=== PATIENT | female | born 1970 | race Caucasian/White ===

== ENCOUNTER 2018-04-30 11:30 | Outpatient (CLI) | payer BC, SELFPAY ==
[2018-04-30 12:24] LABS: Hemoglobin A1C 5.5 % (4.5-6.2)
[2018-04-30 13:30] LABS: ALT 24 U/L (12-78); AST 13 U/L (15-37); Albumin 4.2 g/dL (3.4-5.0); Alkaline Phosphatase 52 U/L (46-116); Anion Gap 9.6 mmol/L (3-11); BUN 13 mg/dL (7-18); Bilirubin, Total 0.4 mg/dL (0.2-1.0); CO2 26.4 mmol/L (21.0-32.0); CREATININE 0.79 mg/dL (0.55-1.02); Calcium 9.8 mg/dL (8.5-10.1); Chloride 102 mmol/L (98-107); Cholesterol 266 mg/dL (50-200); Glucose 92 mg/dL (70-100); HDL Cholesterol 73 mg/dL (40-60); LDL CHOLESTEROL 169 mg/dL (<100); Potassium 4.1 mmol/L (3.5-5.1); Sodium 138 mmol/L (136-145); Total Protein 7.7 g/dL (6.4-8.2); Triglyceride 162 mg/dL (30-150)
== END 2018-04-30 11:50 ==
PROVIDERS: PCP Nurse Practitioner Gerontology; Visit Provider Obstetrics & Gynecology Gynecology
DX: Z00.00 Encounter for general adult medical examination without abnormal findings (principal); Z13.220 Encounter for screening for lipoid disorders; Z13.1 Encounter for screening for diabetes mellitus; Z13.228 Encounter for screening for other metabolic disorders
CPT/HCPCS: 36415; 80053; 80061; 83721; 83036

== ENCOUNTER 2018-05-04 00:15 | Outpatient (CLI) | payer BC, SELFPAY ==
--- NOTE | 2018-05-04 10:03 | DI.MAMMO_ITS ---
SYMPTOM/DIAGNOSIS: SCREENING, Z12.31 MAMMOGRAMS: Mammograms were interpreted according to the usual protocol including computer analysis with CAD system, tomosynthesis and C view imaging. Comparison is made with exams from [id number]. The breasts are composed of heterogeneously dense fibroglandular tissue, breast density, Category C. No suspicious masses or suspicious microcalcifications are seen. There has been no significant change. IMPRESSION: Category 1C, negative mammogram. Yearly screening mammography is recommended. [facility] ASSESSMENT OF FINDINGS: Negative. Category 1. Patient will receive a letter notifying them of these results. Bi-RADS category C. The breasts are heterogeneously dense, which may obscure small masses.
== END 2018-05-04 00:35 ==
PROVIDERS: PCP Nurse Practitioner Gerontology; Visit Provider Obstetrics & Gynecology Gynecology
DX: Z12.31 Encounter for screening mammogram for malignant neoplasm of breast (principal)
CPT/HCPCS: 77063; 77067

== ENCOUNTER 2018-05-06 05:27 | Outpatient (CLI) | payer BC, SELFPAY ==
--- NOTE | 2018-05-06 08:07 | DI.US_ITS ---
SYMPTOMS/DIAGNOSIS: ENLARGED UTERUS, DYSMENORRHEA PELVIC ULTRASOUND: Transabdominal and transvaginal examinations were performed. The uterus is enlarged with multiple fibroids, measuring 11.9 x 7.7 x 9.1 cm. The largest fibroid is seen anteriorly measuring 6.7 cm in greatest dimension. The ovaries were difficult to visualize due to the presence of the fibroids. They are only seen transabdominally and appear normal in size. The kidneys are unremarkable. The endometrial stripe was not well seen due to fibroids but measures 11 mm where visualized. IMPRESSION: Enlarged uterus with multiple fibroids.
== END 2018-05-06 05:47 ==
PROVIDERS: PCP Nurse Practitioner Gerontology; Visit Provider Obstetrics & Gynecology Gynecology
DX: N94.6 Dysmenorrhea, unspecified (principal); N85.2 Hypertrophy of uterus; D25.9 Leiomyoma of uterus, unspecified
CPT/HCPCS: 76830; 76856

== ENCOUNTER 2019-05-11 01:18 | Outpatient (CLI) | payer BC, SELFPAY ==
--- NOTE | 2019-05-11 08:11 | DI.US_ITS ---
EXAM: US PELVIS TRANSVAGINAL CLINICAL HISTORY: enlarged uterus, N85.2 TECHNIQUE: Ultrasound performed using standard protocol. Transabdominal and transvaginal exams wer e performed. COMPARISON: US PELVIS TRANSVAGINAL from 05/06/2018 FINDINGS: The uterus is enlarged with multiple fibroids. The uterus measures 11.5 x 8.3 x 8.6 cm. A fibroid jolene suring 6.7 cm is again noted near the fundus. Smaller exophytic fibroid is seen at the fundus. Endome trial stripe is difficult to visualize due to deformity and shadowing by the fibroid. Ovaries were no t able to be visualized. The kidneys are unremarkable. No free fluid is seen. IMPRESSION: Enlarged uterus with fibroids, not significantly changed. The ovaries were unable to be identified.
== END 2019-05-11 01:38 ==
PROVIDERS: PCP Family Medicine; Visit Provider Obstetrics & Gynecology Gynecology
DX: N85.2 Hypertrophy of uterus (principal); D25.9 Leiomyoma of uterus, unspecified
CPT/HCPCS: 76830; 76856

== ENCOUNTER 2020-05-25 09:52 | Outpatient (REF) | payer BC, SELFPAY ==
--- NOTE | 2020-05-25 09:15 | PAPFT_PTH ---
PATIENT: Bhumika Tadeo LOC: [facility] U#:[id number] AGE/SX: 49/F ROOM: RE05/25/[address]: Gladis Rasmussen : 1970 BED: DIS: 05/25/2020 SPEC #: [id number] RECD: 05/25/20 13:09 STATUS: SOCO REShawn #: [id number] MARIANNA: 05/25/20 09:[address]: Gladis Rasmussen DEPT: [facility] Cytology RECD BY: Eva Crane ENTERED: 05/25/20 13:10 SP TYPE: PAPFT OTHR DR: Pako Dumont MD Tissues: 1 - CX/ENDOCX FOR PAP SMEARS Procedures: PAP THIN PREP/UVM Screening HPV DNA PROBE Comments: [id number]
--- NOTE | 2020-05-25 09:15 | ENDOMET_PTH ---
PATIENT: Bhumika Tadeo LOC: [facility] U#:[id number] AGE/SX: 49/F ROOM: RE05/25/[address]: Gladis Rasmussen : 1970 BED: DIS: 05/25/2020 SPEC #: [id number] RECD: 05/25/20 12:54 STATUS: SOCO REQ #: [id number] MARIANNA: 05/25/20 09:[address]: Gladis Rasmussen DEPT: Surgical Specimen RECD BY: Eva Crane ENTERED: 05/25/20 12:54 SP TYPE: Endomet OTHR DR: Pako Dumont MD Tissues: 1 - ENDOMETRIUM BX/CURRETTE Procedures: GROSS AND MICRO LEVEL 4 Comments: [id number]
== END 2020-05-25 10:12 ==
LOC: LBN 09:52
PROVIDERS: PCP Family Medicine; Visit Provider Obstetrics & Gynecology Gynecology
DX: N85.01 Benign endometrial hyperplasia (principal); N92.0 Excessive and frequent menstruation with regular cycle; Z12.4 Encounter for screening for malignant neoplasm of cervix; Z11.51 Encounter for screening for human papillomavirus (HPV)
CPT/HCPCS: 88142; 88305; 87624

== ENCOUNTER 2020-06-16 01:29 | Outpatient (CLI) | payer BC, SELFPAY ==
[2020-06-17 17:07] LABS: COVID-19 RT-PCR UVMMC Result Negative (Negative)
== END 2020-06-16 01:30 | disposition home or self-care (01) ==
LOC: LBO 01:29
PROVIDERS: PCP Family Medicine; Visit Provider Obstetrics & Gynecology Gynecology
DX: Z20.822 Contact with and (suspected) exposure to COVID-19 (principal); Z01.818 Encounter for other preprocedural examination
CPT/HCPCS: U0003

== ENCOUNTER 2020-06-16 01:30 | Outpatient (CLI) | payer BC, SELFPAY ==
[2020-06-16 09:34] LABS: HCT 39.4 % (36.0-46.0); HGB 13.5 g/dL (11.2-15.7); MCH 32.5 pg (27.0-33.0); MCHC 34.3 % (32.0-36.0); MCV 94.9 fL (80-95); MPV 9.6 fL (8.0-11.0); Platelet Count 298 10^3/uL (130-400); RBC 4.15 10^6/uL (3.93-5.22); RDW 11.5 % (11.7-14.6); RDW-SD 39.7 fL; WBC 6.41 10^3/uL (4.4-10.8)
[2020-06-16 10:22] LABS: Anion Gap 8.3 mmol/L (3-11); CO2 26.7 mmol/L (21.0-32.0); Chloride 102 mmol/L (98-107); Potassium 4.1 mmol/L (3.5-5.1); Sodium 137 mmol/L (136-145)
[2020-06-16 10:27] LABS: HCG Qual (Serum) Negative
== END 2020-06-16 01:31 | disposition home or self-care (01) ==
LOC: LBO 01:30
PROVIDERS: PCP Family Medicine; Visit Provider Obstetrics & Gynecology Gynecology
DX: N92.0 Excessive and frequent menstruation with regular cycle (principal); N85.2 Hypertrophy of uterus; Z01.818 Encounter for other preprocedural examination; Z01.812 Encounter for preprocedural laboratory examination
CPT/HCPCS: 36415; 80051; 85027; 86850; 86900; 86901; 84703

== ENCOUNTER 2020-06-21 14:58 | Observation (INO) | payer BC, SELFPAY ==
[2020-06-21] VITALS (17 sets, daily range): BP systolic 85–110; BP diastolic 54–72; PULSE 66–85; RESP 10–20; TEMP 36.2–36.6; O2SAT 94–100
[2020-06-21] MEDS: Lactated Ringers 1,000 ML 125 ML IV ×2 (09:05→14:38)
[2020-06-21] MEDS: fentaNYL 100 MCG/2 ML VIAL IT (12:12)
[2020-06-21] MEDS: ceFAZolin 2 GM/50 ML BAG IVPB (12:16)
[2020-06-21] MEDS: Bupivacaine 0.25% Pres-Free 30 ML VIAL (12:57)
--- NOTE | 2020-06-21 13:05 | UTER_PTH ---
PATIENT: Bhumika Tadeo LOC: [facility] U#:[id number] AGE/SX: 49/F ROOM: OBS.306 RE06/21/[address]: Gladis Rasmussen : 1970 BED: A DIS: 06/22/2020 SPEC #: [id number] RECD: 06/21/20 16:38 STATUS: SOUTino REQ #: [id number] MARIANNA: 06/21/20 13:[address]: Gladis Rasmussen DEPT: Surgical Specimen RECD BY: Eva Crane ENTERED: 06/21/20 16:44 SP TYPE: UTER OTHR DR: Pako Dumont MD Tissues: 1 - UTERUS W OR W/O OVARIES(NOT TUMOR/PROLAPSE) Procedures: GROSS AND MICRO LEVEL 5 Comments: [id number]
[2020-06-21] MEDS: Ketorolac 30 MG/ML VIAL IVP ×2 (15:56→21:51)
--- NOTE | 2020-06-21 16:23 | W.PM.OP ---
Date of service: 06/21/20 Time of Service: 16:30 Operative Note Operative Note DATE OF PROCEDURE: 06/21/20 PRE-OP DIAGNOSIS: Enlarged uterus, abnormal uterine bleeding POST-OP DIAGNOSIS: same PROCEDURE: Attempted laparoscopic assisted vaginal hysterectomy that was converted to a total abdominal hysterectomy with bilateral salpingectomy and ovarian conservation SURGEON: Gladis Rasmussen SETTLEMENT PROCESSOR: Rosa Velazquez ANESTHESIA TYPE: General LMA/ETT and Spinal Refer to Anesthesia Record ESTIMATED BLOOD LOSS: 500 PATHOLOGY: other (Both fallopian tubes uterus and cervix to pathology) COMPLICATIONS: None Patient was transported to: PACU Patient's condition: stable Indications: 49-year old female with heavy regular menses and enlarged uterus secondary to multiple fibroids who was not a good candidate for medical intervention. Findings: Bulky uterus with the lower uterine segment distorted by an intramural fibroid. The distal right broad ligament was millimeters away from the internal iliac artery and I was unable to visualized the right ureter.it was at this point in the surgery that decision was made to proceed with a abdominal hysterectomy. Left ovary had a simple appearing functional cyst, both fallopian tubes were normal in appearance as was the appendix and the upper abdomen. Procedure Description: Patient was taken to the operating room where she was placed in the sitting position and spinal anesthesia was administered without difficulty. She was then placed in the dorsal supine position and general endotracheal anesthesia was administered. She received preoperative antibiotics as prescribed. She was then placed in the dorsal lithotomy position in yellowfin stirrups with SCDs in place. After being prepped and draped in the usual sterile fashion a surgical timeout was performed. Lopes catheter was placed to gravity drainage. A bivalve speculum was placed in the vagina and the anterior lip of the cervix was grasped with a single-tooth tenaculum. A uterine manipulator was placed into the uterine cavity and the distal bulb inflated with 5 cc of water and remained in place for the during the operative portion of the case. Attention was then turned to the patient's abdomen. The umbilical fold was infiltrated with quarter percent Marcaine without epinephrine. A scalpel was then used to make a 12mm skin incision in the vertical fold. Two penetrating towel clips were used to tent up the skin and through the periumbilical incision and a Veres needle was introduced into the abdomen and intra-abdominal placement confirmed by a drop in the intra-abdominal pressure. Once a pneumoperitoneum was established a 12 mm Visiport was placed under direct visualization and intra-abdominal placement confirmed by use of the laparoscope. Patient was then placed in Trendelenburg position. At two sites approximately 6 cm diagonally from the umbilical incision the skin was infiltrated with quarter percent Marcaine without epinephrine, incised with a scalpel and two 5 mm lower ports were placed under direct visualization. A LigaSure electrocautery device was used to clamp cauterize and transect the distal mesosalpinx in a contiguous fashion to the level of the left uterine cornua. The left fallopian tube was clamped cauterized and transected at its proximal relation to the left uterine cornua. The left lobe tube was then passed through the helical trocar and passed off of the operative field. Left ovarian ligament was then sequentially clamped cauterized and transected to the level of the left round ligament were in a similar fashion fashion the left round ligament was clamped cauterized and transected. The left broad ligament was sequentially clamped cauterized and transected allowing mobilization of the vesicouterine peritoneum off of the lower uterine segment. Viewing the cervix was virtually impossible secondary to distortion from the lower uterine segment fibroid. Attention was turned to the right fallopian tube which was sequentially clamped cauterized and transected in a similar fashion as the left side and entire right fallopian tube passed through the umbilical trocar passed off the operative field. We are unable to visualize the right round ligament secondary to to the distortion from the uterine fibroids. Because of the close proximity of the lower uterine segment to the right pelvic sidewall and vascular structures the decision was made to proceed with a abdominal hysterectomy for the remainder of the case. The uterine manipulator was removed from the uterus. The patient did not require repositioning or redraping. A Pfannenstiel skin incision was made with a scalpel after dermal area had been infiltrated with quarter percent Marcaine without epinephrine. The underlying subcutaneous tissue was dissected using Bovie electrocautery to the level of the rectus fascia. The rectus fascia was nicked in the midline and the fascial incision extended laterally using Bovie electrocautery. 2 Harsh clamps were applied to the superior aspect of the rectus fascia which was dissected off of the underlying rectus muscles using combination of blunt technique and Bovie electrocautery. A similar technique was carried out on the rectus fascia of the inferior aspect of the incision. The rectus muscles were then in the midline and the peritoneum was bluntly stretched. A Shashi self-retaining retractor was placed into the abdominal incision and bowel was packed away with moist laparotomy sponges. A suture of 0 Vicryl was placed at the cornual regions bilaterally and held long for traction. The remaining left broad ligament was sequentially clamped transected and suture ligated with 0 Vicryl to the level of the uterine vessels. Similar technique was carried out on the contralateral side. Once the right and left uterine vessels had been clamped transected and suture-ligated the uterus was amputated from the body of the cervix with the Bovie electrocautery. Uterus was then passed off of the operative field. The remaining remnants of broad ligament were sequentially clamped cut and suture-ligated bilaterally to the level of the bulbous portio of the cervix. A curved Zeppelin clamp was placed across the right and left vaginal epithelium and curved scissors were used to amputate the cervix from the vagina. The body of the cervix was passed off of the operative field. The vaginal cuff was then reapproximated with interrupted sutures of 0 Vicryl with excellent hemostasis noted. The pelvis was irrigated with normal saline and hemostasis observed. The abdominal packing was removed as was the self-retaining retractor. The periumbilical fascia was reapproximated with interrupted suture of 0 Vicryl. The rectus fascia was then reapproximated with a running suture of 0 Vicryl. Subcutaneous tissue was then reapproximated with 2-0 Vicryl in an interrupted fashion and the skin reapproximated with subcuticular closure of 4-0 Monocryl. The skin of all the trocar incisions was then reapproximated with 4-0 Monocryl in subcuticular fashion and all the incisions were sealed with skin glue. A bladder cystoscopy was performed with vigorous eflux of urine noted from the right and left ureteral orifices. Lopes cath was reinserted to gravity drainage. The patient was placed in the dorsal supine position, awakened extubated and transported to recovery area in stable condition. All sponge lap and needle counts are correct x2
[2020-06-21] MEDS: Lactated Ringers 1,000 ML 150 ML IV (16:38)
[2020-06-21] MEDS: Docusate Sodium 100 MG CAP PO (21:51)
[2020-06-21] MEDS: Normal Saline Flush 10 ML SYR IV (21:51)
[2020-06-22] VITALS (7 sets, daily range): BP systolic 82–111; BP diastolic 40–65; PULSE 58–61; RESP 16–18; TEMP 36.8; O2SAT 97–100
[2020-06-22] MEDS: diphenhydrAMINE 25 MG CAP PO (03:58)
[2020-06-22] MEDS: Ketorolac 30 MG/ML VIAL IVP (03:58)
[2020-06-22] MEDS: Normal Saline Flush 10 ML SYR IV (03:58)
[2020-06-22 06:58] LABS: HCT 37.1 % (36.0-46.0); HGB 12.4 g/dL (11.2-15.7); MCH 32.2 pg (27.0-33.0); MCHC 33.4 % (32.0-36.0); MCV 96.4 fL (80-95); MPV 9.8 fL (8.0-11.0); Platelet Count 284 10^3/uL (130-400); RBC 3.85 10^6/uL (3.93-5.22); RDW 11.6 % (11.7-14.6); WBC 14.88 10^3/uL (4.4-10.8)
--- NOTE | 2020-06-22 07:42 | W.PM.DS.N ---
Date of service: 06/22/20 Time of Service: 07:42 DS: Diagnosis Discharge Diagnosis (1) History of total abdominal hysterectomy: Status: Acute (2) H/O bilateral salpingectomy: Status: Acute (3) Enlarged uterus: Status: Acute (4) Menorrhagia: Status: Acute Discharge Plan Disposition Patient Disposition: HOME Condition: Good Discharge Details Reason For Visit: UTERINE FIBROID, ABNORMAL UTERINE BLEEDING Admit Date/Time: 06/21/20 14:58 Admit Provider: Gladis Rasmussen Attending Provider: Gladis Rasmussen [facility] Course: Pt has a hx of dysmenorrhea and abnormal uterine bleeding was admitted to [facility] and underwent a CRYSTAL and bilateral salpingectomy. The surgery was started as a laparoscopic procedure but due to the distortion of the anatomy from the lower uterine segment we were unable to continue safely with the laparoscopic portion of the case. The uterus and cervix were removed abdominally without complication. A bladder cystoscopy performed at the completion of the procedure show bilateral efflux from the urethral orifices. Postop course was uncomplicated. She was discharged to home on POD 1 tolerating a regular diet and voiding spontaneously. Post operative pain was well controlled with Percocet and NSAIDS. She has a follow up appointment with Dr. Rasmussen 07/05/20. Discharge meds: Percocet 5/325mg one tablet every 6hrs as needed. Ibuprofen 600mg every 6 hours as needed. Acetaminophen 325mg every 6 hrs as needed. Home Meds and New Rx's Prescriptions: No Action cholecalciferol (vitamin D3) 125 mcg/0.5 mL (5K unit/0.5mL) drops 12.5 mcg PO DAILY RF: 0 citalopram 40 mg tablet 40 mg PO DAILY Qty: 90 RF: 4 Discharge Instructions Additional Instructions: You may shower any time. The skin glue will keep your incisions dry. You remove the bandaids when you wish. I have called a prescription for Percocet into your pharmacy. Stand Alone Forms: [facility] Post Gynecology Surgery Activity:: Activity as Tolerated Equipment/Supplies:: No Equipment Needed Diet:: As Tolerated Discharge Orders Discharge Orders: Discharge Order (Routine); Ordered 06/22/20 Ordered By: Gladis Rasmussen Discharge Data Discharge Date/Time-TO BE ENTERED AT DEPARTURE: 06/22/20 09:40 DS: Summary Time Spent with Patient providing and/or coordinating discharge services: Less than 30 minutes Status at Discharge Functional status at discharge: independent ambulation Overall status at discharge: patient is progressing back to baseline Mental Status: mental status grossly normal Speech and Movement: speech and movement normal Mood: congruent mood Affect: normal affect Exam Const General: no acute distress Nutritional Appearance: average body habitus Orientation: alert, awake and oriented x3 Resp Effort & Inspection: normal respiratory effort Auscultation: clear to auscultation bilaterally Cardio Rate: regular rate Rhythm: regular rhythm GI Inspection: normal to inspection and scar (Pfannenstiel skin incision and port sites intact skin glue in place) Palpation: soft, no hepatosplenomegaly, no guarding, no masses and tender General: deferred Skin General skin exam: no rashes or lesions noted Extrem General: normal to inspection, full ROM and capillary refill normal Psych Mental Status: mental status grossly normal Speech and Movement: speech and movement normal Mood: congruent mood Affect: normal affect DS: Data Vitals/I&O Vitals and I&O: Vital Signs Temperature 98.2 F 06/22/20 07:26 Temperature Source Oral 06/22/20 07:26 Pulse 61 06/22/20 07:26 Pulse Rhythm Regular 06/22/20 07:29 Respiratory Rate 16 06/22/20 07:26 Respiratory Effort Non-Labored 06/22/20 07:29 Respiratory Depth Normal 06/22/20 07:29 Respiratory Pattern Normal 06/22/20 07:29 Blood Pressure 111/65 06/22/20 07:26 Pulse Oximetry 100 06/22/20 07:26 Respiratory End-tidal CO2 46 06/21/20 15:43 Oxygen Delivery Method Room Air 06/22/20 07:26 Oxygen Flow Rate 0 06/22/20 07:26 Pain Level 0 06/22/20 07:26 Intake & Output 06/21/20 06/21/20 06/22/20 11:59 23:59 11:59 Intake Total 2870.083 / 2870.083 2700 / 2700 Output Total 750 / 750 1800 / 1800 Balance 2120.083 / 2120.083 900 / 900 Weight 174 lb 6.17 oz Intake: IV 2470.083 / 2470.083 1600 / 1600 Oral 400 / 400 1100 / 1100 Output: Urine 750 / 750 1800 / 1800 Other: Urine Color Green Pale Urine Appearance Clear Clear Comment russell discontinued Emesis Description None Voiding Methods Toilet Data Completed and Pending Labs on day of discharge: Labs from last 24 hours 06/22/20 06:41 WBC 14.88 H RBC 3.85 L Hgb 12.4 Hct 37.1 MCV 96.4 H MCH 32.2 MCHC 33.4 RDW 11.6 L Plt Count 284 MPV 9.8 PFSH Medical History Depression Symptoms stable with citalopram 40 mg daily. Rx from [facility]. Enlarged uterus 05/06/2018 uterus: 119X 77x 91 mm. Multiple fibroids. Largest fibroid fundal 67 x 63 x 58 mm Hx of abnormal cervical Pap smear CIN2. Nl since. Menorrhagia 05/2020. Pt declines LARC. EMBx results Surgical History (Updated 06/22/20 @ 08:07 by Gladis Rasmussen MD) Diagnostic Laproscopy (~1999) Dilation and curettage 1998;1999 H/O bilateral salpingectomy History of total abdominal hysterectomy 06/21/20. Tooth extraction WISDOM TEETH EXTRACTION Family History Mother Breast cancer Social History Smoking/Tobacco Use Status: Former Tobacco Use Quit Date: 05/05/90 Smoking risk assessment performed?: Yes Alcohol Intake: current Alcohol Intake frequency: 0-2 drinks per day Alcohol type: wine Counseling given: Yes (Recommend no more than 1 alcoholic beverage per day) Substance use type: does not use Details: alcohol: t-1, three glasses of wine Adopted: No Caregiver/Support person: No Foster care: No Household members: significant other, children and other Details: Isacc Rowe ([facility] [employer] [facility]),Regina Elizondo. 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
--- NOTE | 2020-06-22 08:00 | W.PM.PROGNOT ---
Date of Service Date of service: 06/22/20 Time of Service: 08:00 Assessment and Plan Assessment and plan (1) H/O bilateral salpingectomy: Status: Acute (2) History of total abdominal hysterectomy: Status: Acute Assessment and plan: Patient be discharged home today. She was given discharge instructions regarding activity level, pain medication and plan for return visit. Final pathology currently pending. Subjective Subjective Patient reports: feels better, still having pain, tolerating a regular diet, voiding w/o difficulty and no bowel movement Interval history since last seen: Reports pain well controlled with Percocet and ibuprofen during the night. Exam Narrative Exam Narrative: Postop day 1 after a total abdominal hysterectomy bilateral salpingectomy. The procedure began as a laparoscopic assisted vaginal hysterectomy but was converted to a total abdominal hysterectomy secondary to distortion of the pelvic anatomy from the patient's uterine fibroids. Postop course has been uncomplicated and she is ready for discharge today. Const General: no acute distress Nutritional Appearance: average body habitus Orientation: alert, awake and oriented x3 Neck Neck: normal visual inspection Resp Effort & Inspection: normal respiratory effort Auscultation: clear to auscultation bilaterally Cardio Rate: regular rate Rhythm: regular rhythm GI Inspection: abdominal wall ecchymosis (Right lower quadrant and mons pubis), edema (Inferior and superior to the Pfannenstiel skin incision) and incision (Clean dry and intact) Palpation: soft and no hepatosplenomegaly General: deferred Skin General skin exam: ecchymosis and no erythema Extrem General: normal to inspection, full ROM and capillary refill normal Psych Appearance: grossly normal Mental Status: mental status grossly normal Speech and Movement: speech and movement normal Mood: congruent mood Affect: normal affect Objective Last Vital Signs Temp 98.2 F 06/22/20 07:26 Pulse 61 06/22/20 07:26 Resp 16 06/22/20 07:26 BP 111/65 06/22/20 07:26 Pulse Ox 100 06/22/20 07:26 Laboratory Results - last 24 hr 06/22/20 06:41 WBC 14.88 H RBC 3.85 L Hgb 12.4 Hct 37.1 MCV 96.4 H MCH 32.2 MCHC 33.4 RDW 11.6 L Plt Count 284 MPV 9.8
[2020-06-22] MEDS: oxyCODONE 5 mg/Acetaminophen 325 mg TAB PO (08:16)
[2020-06-22] MEDS: Docusate Sodium 100 MG CAP PO (08:16)
== END 2020-06-22 09:40 | disposition home or self-care (01) ==
LOC: OBS 16:23
PROVIDERS: Admitting Provider Obstetrics & Gynecology Gynecology; PCP Family Medicine; Visit Provider Obstetrics & Gynecology Gynecology
PROC: 0UT9FZZ Resection of Uterus, Via Natural or Artificial Opening With Percutaneous Endoscopic Assistance (ICD-10-PCS; CPT 49320; principal; 2020-06-21 10:00)
PROC: 0UT90ZZ Resection of Uterus, Open Approach (ICD-10-PCS; CPT 49320; 2020-06-21 10:00)
DX: D25.1 Intramural leiomyoma of uterus (principal); D25.2 Subserosal leiomyoma of uterus; Z53.31 Laparoscopic surgical procedure converted to open procedure; N85.2 Hypertrophy of uterus; N92.0 Excessive and frequent menstruation with regular cycle
CPT/HCPCS: 49320; 58150; 52000; 36415; 81025; 85027; 96360; 96361; NC; 88307; G0378; J0690; J1100; J1885; J2250; J2405; J2704; J3010

== ENCOUNTER 2020-07-21 10:54 | Outpatient (CLI) | payer BC, SELFPAY ==
[2020-07-22 14:20] LABS: COVID-19 RT-PCR UVMMC Result Positive (Negative)
== END 2020-07-21 10:55 | disposition home or self-care (01) ==
PROVIDERS: PCP Family Medicine; Visit Provider Family Medicine
DX: Z20.822 Contact with and (suspected) exposure to COVID-19 (principal)
CPT/HCPCS: U0003

== ENCOUNTER 2020-09-13 03:08 | Outpatient (CLI) | payer BC, SELFPAY ==
[2020-09-13 08:40] LABS: Hemoglobin A1C 5.6 % (<5.7)
[2020-09-13 09:09] LABS: ALT 33 U/L (14-59); AST 16 U/L (15-37); Albumin 4.1 g/dL (3.4-5.0); Alkaline Phosphatase 59 U/L (46-116); Anion Gap 9.7 mmol/L (3-11); BUN 13 mg/dL (7-18); Bilirubin, Total 0.6 mg/dL (0.2-1.0); CO2 27.3 mmol/L (21.0-32.0); CREATININE 0.9 mg/dL (0.55-1.02); Calcium 9.4 mg/dL (8.5-10.1); Calculated LDL 158 mg/dL (<100); Chloride 104 mmol/L (98-107); Cholesterol 254 mg/dL (<200); Glucose 111 mg/dL (74-106); HDL Cholesterol 69 mg/dL (40-60); Potassium 4.5 mmol/L (3.5-5.1); Sodium 141 mmol/L (136-145); Total Protein 7.8 g/dL (6.4-8.2); Triglyceride 138 mg/dL (<150)
[2020-09-14 13:12] LABS: TSH (W/Ref FT4) 1.43 uIU/mL (0.36-3.74)
== END 2020-09-13 03:09 | disposition home or self-care (01) ==
LOC: LBO 03:08
PROVIDERS: PCP Nurse Practitioner Family; Visit Provider Nurse Practitioner Family
DX: E78.5 Hyperlipidemia, unspecified (principal); Z00.00 Encounter for general adult medical examination without abnormal findings
CPT/HCPCS: 36415; 80053; 80061; 83036; 84443

== ENCOUNTER 2020-11-27 01:52 | Outpatient (CLI) | payer BC, SELFPAY ==
[2020-11-27 11:22] LABS: Source Nasal/Nares
[2020-11-27 16:06] LABS: COVID-19 PCR Negative (Negative)
== END 2020-11-27 01:53 | disposition home or self-care (01) ==
LOC: LBO 01:53
PROVIDERS: PCP Nurse Practitioner Family; Visit Provider Surgery
DX: Z20.822 Contact with and (suspected) exposure to COVID-19 (principal); Z01.818 Encounter for other preprocedural examination
CPT/HCPCS: 87635

== ENCOUNTER 2020-11-29 07:17 | Day surgery (SDC) | payer BC, SELFPAY ==
--- NOTE | 2020-11-28 14:14 | ANES.PREOP_ITS ---
General Info Date of Service Date Performed: 11/29/20 Height: 5 ft 8 in Weight: 77 kg Body Mass Index (BMI): 25.8 Surgical Procedure: Operation Date: 11/29/20 08:20 Proposed Procedures Side Surgeon iris Rios MD Meds Allergies and Home Medications Allergies Allergy/AdvReac Type Severity Reaction Status Date / Time amoxicillin Allergy Mild Rash Unverified 11/29/20 05:57 Home Medication Medication Instructions Recorded cholecalciferol (vitamin D3) 12.5 mcg PO DAILY 06/12/20 citalopram 40 mg tablet 40 mg PO DAILY #90 tab 07/11/20 bisacodyl 5 mg tablet,delayed 5 mg PO ONCE #4 tab 11/10/20 release fluticasone propionate 50 1 spray INTRANASAL DAILY 11/10/20 mcg/actuation nasal spray,suspension polyethylene glycol 3350 17 238 g PO ONCE #238 g 11/10/20 gram/dose oral powder clobetasol 1 applic TOPICAL .COMPLEX 11/27/20 Current Visit Medications: Current Medications Generic Name Dose Route Start Last Admin Trade Name Freq PRN Reason Stop Dose Admin Ringer's Solution 1,000 mls @ 80 mls/hr 11/29/20 06:00 IV 12/28/20 23:59 INFUSION CAITLIN IV Miscellaneous Supplies 1 each 11/29/20 06:00 Iv Access IV 12/28/20 23:59 DIRECTED CAITLIN Sodium Chloride 0 ml 11/29/20 06:00 Normal Saline Flush 10 Ml Syr IV 12/28/20 23:59 PRN PRN Sodium Chloride 0 ml 11/29/20 06:00 Normal Saline 10 Ml Vial IJ 12/28/20 23:59 DIRECTED PRN Sterile Water 0 ml 11/29/20 06:00 Water,Injection,Sterile 10 Ml Vial IJ 12/28/20 23:59 DIRECTED PRN PFSH Active Problems Active Problems: Problem Status Onset Code Lichen sclerosus L90.0 Right lower quadrant pain R10.31 Depressive disorder F32.9 Hyperlipidemia E78.5 Medical History Medical History COVID-19 virus infection Positive PCR 07/21/2020 Depressive disorder Hx of abnormal cervical Pap smear CIN2. Nl since. Hyperlipidemia Lichen sclerosus Lichenification labia minora. Architecture normal. No symptoms. Right lower quadrant pain Surgical History Surgical History Hx of bilateral salpingectomy S/P dilatation and curettage S/P laparoscopy S/P total abdominal hysterectomy (06/21/20) For AUB Tobacco Smoking/Tobacco Use Status: Former Tobacco Use Tobacco: How many years used: 2 Passive smoking exposure: No Alcohol Alcohol Intake: current Alcohol intake frequency: 0-2 drinks per day Alcohol type: wine Counseling given: Yes (Recommend no more than 1 alcoholic beverage per day) Substance Use Substance use type: does not use Details: alcohol: t-1, three glasses of wine Vital Signs and Lab Results Vital Signs Most Recent Vital Signs in EMR: Temp Pulse Resp BP Pulse Ox 36.3 C L 82 18 112/78 98 11/29/20 07:25 11/29/20 07:25 11/29/20 07:25 11/29/20 07:25 11/29/20 07:25 Lab Results Blood Type / Crossmatch: No Data to Display Complete Blood Count: No Data to Display Complete Metabolic Panel: No Data to Display Liver Function Panel: No Data to Display Coagulation Panel: No Data to Display Cardiac Panel: No Data to Display Arterial Blood Gas: 2 No Data to Display Venous Blood Gas: No Data to Display Pancreas Panel: No Data to Display Thyroid Panel: No Data to Display Infectious Disease: Coronavirus (COVID-19)(PCR) Negative (Negative) 11/27/20 08:51 11/27/20 Coronavirus 2019 Source Nasal/Nares 11/27/20 08:51 11/27/20 Blood Cultures: No Data to Display Toxicology Panel: No Data to Display Panel: No Data to Display Anesthesia Assessment and Plan Anesthesia History Personal History: No History of Anesthesia Complications and PONV Family History: No Family History of Anesthesia Complications Exercise Tolerance Exercise Tolerance: Metabolic Equivalents>4 Cardiac & Pulmonary Exam Cardiac Exam: Normal S1/S2 Heart Sounds Pulmonary Exam: Clear Bilateral Breath Sounds Airway Exam Known Difficult Airway: No Mallampati Class: 1 Mouth Opening: Normal (> 3cm) Thyromental Distance: Greater than 3 cm Neck Range of Motion: Full ROM Neck Circumference: Normal Teeth Condition: Normal Dentition ASA Classification ASA Score: ASA 2 Emergency Case?: No NPO Status NPO Status: NPO Clears >2 hours, Solids >8 hours Status Status: History of Hysterectomy Anesthesia Plan Resuscitation Status: Full Code Anesthesia Technique: General Anesthesia Airway Planned: Natural Airway Monitors Used: Standard Monitors Preoperative Comments:: 49 yo female for screening colonoscopy. Positive COVID PCR 07/21/20, currently PCR negative. previous quintero 2 grade 2a.
--- NOTE | 2020-11-29 06:41 | W.COLOREPORT ---
Date of service: 11/29/20 Time of Service: 08: Colonoscopy Report Date of procedure: 11/29/20 Pre-op diagnosis general: Colon Cancer Screening Post-op diagnosis procedure note: other (diverticulosis) Procedure: Colonoscopy Surgeon: Luz Rios Anesthesia Type: General:No Airway (ASA 2/ Edgar Lozano CRNA) Estimated blood loss (mL): 0 Pathology: none sent Complications: None Disposition: same day Indications: The patient is here for Colonoscopy pre-op. She has no family history of colon cancer. She has not had any bowel habit changes. -Discussed colonoscopy bowel prep as well as the procedure. Discussed possible complications of the procedure to include bleeding, pain, perforation, missed small lesion/polyp, sore throat, aspiration and adverse reaction to the medications. Questions were answered to patient?s satisfaction. No guarantees were implied or given. Prep: Miralax/Dulcolax Procedure Start Time: : Procedure End Time: 08:43 Retraction Time: 14 minutes Findings: mild diverticulosis Procedure Description: After informed consent was obtained the patient was taken to the procedure room and placed in a left decubitous position. Monitors were applied and a time out was done. The patients name, date of , procedure, allergies to medications and metal in their body was reviewed. The patient was then sedated. Once sedated and comfortable a rectal exam was done. External exam was normal. Internal exam revealed a normal sphincter tone and no palpable masses. The scope was then introduced and retro-flexed. No internal hemorrhoids, polyps or masses were identified on retro-flexion. The scope was then advanced to the cecum without difficulty. The ileocecal vlave and appendiceal orifice were identified. The prep was adequate. The scope was then slowly retracted over 14 minutes back into the rectum. There were no polyps. There was mild descending and sigmoid diverticulosis noted. The scope was removed and the patient was woken up and taken back to Same day surgery in stable condition. The patient tolerated the procedure well and there were no immediate complications. Follow up: The patient should follow up in 10 years unless they develop changes in bowel habits or other new gastrointestinal complaints.
--- NOTE | 2020-11-29 06:43 | W.PM.DSUDISC ---
Discharge Plan Disposition Patient Disposition: HOME Condition: Good Discharge Details Reason For Visit: Colonoscopy Attending Provider: Luz Rios Primary Care Provider: Modesta Darden Home Meds and New Rx's Prescriptions: Continued cholecalciferol (vitamin D3) 125 mcg/0.5 mL (5K unit/0.5mL) drops 12.5 mcg PO DAILY RF: 0 fluticasone propionate [Flonase Allergy Relief] 50 mcg/actuation spray,suspension 1 spray intranasal DAILY RF: 0 citalopram 40 mg tablet 40 mg PO DAILY Qty: 90 RF: 4 clobetasol 0.05 % ointment 1 applic topical .COMPLEX RF: 0 Discontinued polyethylene glycol 3350 17 gram/dose powder 238 g PO ONCE Qty: 238 RF: 0 bisacodyl [Dulcolax (bisacodyl)] 5 mg tablet,delayed release (DR/EC) 5 mg PO ONCE Qty: 4 RF: 0 Discharge Instructions Instructions: Diverticulosis (DC) Additional Instructions: Findings: Diverticulosis Follow up: 10 years Please call if you develop: fevers >101.5 Nausea or Vomiting Abdominal pain that is not transient Rectal bleeding that is more then a tbsp A hard abdomen and inability to pass gas DAY SURGERY UNIT POST ENDOSCOPY INSTRUCTIONS Instructions for everyone who is given Anesthesia: For your safety, please do the following for the next 24 Hours: a. Do not drive or operate dangerous equipment b. Do not drink alcohol beverages or use any recreational drugs for the first 24 hours or while taking pain medications. The medications in your body may have a reaction that can be dangerous. c. Do not make any important decisions or sign any important papers 1. Generally there are no restrictions on your activity after a day or so has gone by, but you may feel a bit fatigued for a few days. 2. After you arrive home you may have a light meal and return to a normal diet as you can tolerate it without feeling sick to your stomach. 3. After surgery, you may feel pain or discomfort. This should be only transient, but if it persists please contact your doctor. 4. If there are any questions regarding the findings of your procedure, please feel free to contact your doctor. 6. If you are unable to contact your doctor with a problem, contact the hospital at [phone]. 7. Continue all your regular medications unless directed otherwise. I understand the above instructions and have no questions. Signature of Patient or Responsible Adult Escort Date/Time Name of Responsible Adult Escort Signature of Nurse Date/Time Activity:: Activity as Tolerated Diet:: High Fiber diet Discharge Orders Discharge Orders: Discharge Order (Routine); Ordered 11/29/20 Ordered By: Luz Rios
[2020-11-29 07:25] VITALS: BP 112/78; PULSE 82; RESP 18; TEMP 36.3; O2SAT 98
[2020-11-29] MEDS: Lactated Ringers 1,000 ML 80 ML IV (07:56)
[2020-11-29 08:04] VITALS: BMI 25.8
--- NOTE | 2020-11-29 08:05 | W.ANESPOSTOP ---
Postoperative Evaluation Date, Time and Location Date Performed: 11/29/20 Time Performed: 08:49 Patient Location: Day Surgery Unit Vital Signs Most Recent Imported Vital Signs: Most Recent Vital Signs Temp Pulse Resp BP Pulse Ox 36.3 C L 82 18 112/78 98 11/29/20 07:25 11/29/20 07:25 11/29/20 07:25 11/29/20 07:11/29/20 07:25 Most Recent Manually Entered Vital Signs: Adult Blood Pressure: 117/71 Heart Rate: 75 Respirations: 18 Oxygen Saturation (%): 97 Temperature (C): 36.5 C Pain Score (0-10 Scale): 0 Assessment Mental Status: Awake (Alert & Oriented to Patient Baseline) Airway and Respiratory Function: Patent airway with normal (patient baseline) respiratory exam Cardiovascular Function: Hemodynamically Stable Hydration Status: Adequately Hydrated Nausea & Vomiting: No Nausea or Vomiting Pain: Pt. Denies Any Pain Peripheral Nerve Block: Patient did not receive a nerve block
[2020-11-29 08:49] VITALS: BP 117/71; PULSE 74; PULSE 75; RESP 16; RESP 18; TEMP 36.5; TEMPC 36.5; O2SAT 97
[2020-11-29 09:15] VITALS: BP 115/80; PULSE 57; RESP 16; TEMP 36.5; O2SAT 94
== END 2020-11-29 09:37 | disposition home or self-care (01) ==
LOC: SUR 07:19
PROVIDERS: PCP Nurse Practitioner Family; Visit Provider Surgery
PROC: 0DJD8ZZ Inspection of Lower Intestinal Tract, Via Natural or Artificial Opening Endoscopic (ICD-10-PCS; CPT 45378; principal; 2020-11-29 08:15)
DX: Z12.11 Encounter for screening for malignant neoplasm of colon (principal); K57.30 Diverticulosis of large intestine without perforation or abscess without bleeding
CPT/HCPCS: 45378; J2001; J2405; J2704

== ENCOUNTER 2022-08-13 01:31 | Outpatient (CLI) | payer BC, SELFPAY ==
--- NOTE | 2022-08-13 15:04 | DI.RAD_ITS ---
Exam(s) XR HIP LT COMPLETE AP PELVIS EXAM: XR HIP LT COMPLETE AP PELVIS CLINICAL HISTORY: LT HIP PAIN NOT RESPONDING TO CONSERVATVE CARE,? DJD. TECHNIQUE: 2D digital imaging was performed. COMPARISON: No exams were available for comparison FINDINGS: 3 views No evidence of pelvic nor hip fracture. No degenerative narrowing of the hip joint on either side. No hip dysplasia. SI joints unremarkable. No osseous lesions. IMPRESSION: No significant radiograph findings. DATA REPOSITORY: RADIATION DOSE DELIVERED:
== END 2022-08-13 01:51 ==
LOC: DI 01:32
PROVIDERS: PCP Nurse Practitioner Family; Visit Provider Chiropractor
DX: M25.552 Pain in left hip (principal)
CPT/HCPCS: 73502

== ENCOUNTER 2022-09-25 08:20 | Outpatient (CLI) | payer BC, SELFPAY ==
--- NOTE | 2022-09-25 08:15 | DI.MRI_ITS ---
Exam(s) MR LUMBAR SPINE WO EXAM: MR LUMBAR SPINE WO CLINICAL HISTORY: lumbar back pain with radiculopathy,m54.16. TECHNIQUE: Multiplanar multisequence MRI of the Lumbar spine was performed. COMPARISON: [facility] THORACIC SPINE from 05/18/2013 FINDINGS: Conus medullaris is at normal level. There is no evidence of conus mass nor subjacent clumping of in trathecal nerve roots to suggest arachnoiditis. The distal thecal sac appears unremarkable.There is no evidence of Tarlov intrasacral cysts nor other significant findings within the sacral canal Bones:There are no fractures nor ominous osseous lesions in the lumbar vertebral bodies and visualize d sacrum. Benign intraosseous hemangioma noted in L3 vertebral body. With respect to the individual levels... T12-L1: Unremarkable L1-2: Normal disc height and signal. No disc herniation nor central canal stenosis.No foraminal steno sis L2-3: Normal disc height. No disc herniation nor central canal stenosis.No foraminal stenosis.No face t arthropathy. L3-4: Normal disc height. Mild asymmetric annular bulging in the floor of the exiting right neural f oramen but no foraminal stenosis evident.No significant facet arthropathy. L4-5: Normal disc height and signal. Mild symmetrical annular bulging. No significant disc herniati on. Central canal dimensions are lower normal. No significant foraminal stenosis. No significant f acet arthropathy. L5-S1: At this level there is a posterior disc herniation which is predominantly central and extends posteriorly 5 mm and is approximately 2 cm wide, somewhat compressing the thecal sac anterior aspect of thecal sac at this level. Disc herniation does not extend into the exiting neural foramen on eith er side. There is minimal foraminal stenosis bilaterally due to slight disc height loss. Facet join t at this level appear unremarkable. Soft tissues: paraspinal soft tissues appear unremarkable. IMPRESSION: 1. The main finding here is a disc herniation is described above at L5-S1 level. This is associated with some mild compression of the anterior aspect of the thecal sac at this level. The disc herniati on does not extend into the exiting neural foramina. 2. No other significant disc herniations in the lumbar spine and there is no central spinal canal nader nosis nor foraminal stenosis at other levels. 3. No significant facet arthropathy. DATA REPOSITORY:
== END 2022-09-25 08:40 ==
LOC: DI 08:20
PROVIDERS: PCP Nurse Practitioner Family; Visit Provider Nurse Practitioner Family
DX: M54.16 Radiculopathy, lumbar region (principal); M51.37 Other intervertebral disc degeneration, lumbosacral region
CPT/HCPCS: 72148

== ENCOUNTER 2023-01-08 09:12 | Outpatient (CLI) | payer BC, SELFPAY ==
--- NOTE | 2023-01-08 09:00 | RT.EKG_ITS ---
APPROVED REPORT Exam: Resting ECG Reason for Exam: Pre-op Patient Location: O HR:60 bpm ECG Measurements Heart Rate 60 AXIS MD 145 P 37 QRSd 106 QRS 2 QT 423 T 39 QTc 423 Conclusion Sinus rhythm...normal P axis, V-rate 50- 99 Low voltage, precordial leads...precordial leads <1.0mV RSR' in V1 or V2, probably normal variant...small R' only Otherwise normal ECG
== END 2023-01-08 09:13 | disposition home or self-care (01) ==
PROVIDERS: PCP Nurse Practitioner Family; Visit Provider Nurse Practitioner Family
DX: Z01.818 Encounter for other preprocedural examination (principal)
CPT/HCPCS: 93010

== ENCOUNTER 2023-01-23 04:03 | Outpatient (CLI) | payer BC, SELFPAY ==
[2023-01-23 09:18] LABS: Abs Immature Grans 0.02 10^3/uL (0.0-0.06); Absolute Basophil Count 0.04 10^3/uL (0.0-0.2); Absolute Eosinophil Count 0.29 10^3/uL (0.0-0.7); Absolute Lymphocyte Count 2.46 10^3/uL (1.2-3.4); Absolute Monocyte Count 0.46 10^3/uL (0.1-0.8); Absolute Neutrophil Count 2.99 10^3/uL (1.2-6.7); Basophils % 0.6; Eosinophils % 4.6; HCT 39.1 % (36.0-46.0); HGB 13.6 g/dL (11.2-15.7); Immature Grans % 0.3; Lymphocytes % 39.3; MCH 32.5 pg (27.0-33.0); MCHC 34.8 % (32.0-36.0); MCV 94 fL (80-95); MPV 9.6 fL (8.0-11.0); Monocytes % 7.3; Neutrophils % 47.9; Platelet Count 331 10^3/uL (130-400); RBC 4.18 10^6/uL (3.93-5.22); RDW 11.7 % (11.7-14.6); WBC 6.26 10^3/uL (4.4-10.8)
[2023-01-23 09:34] LABS: Anion Gap 8.7 mmol/L (3-11); BUN 16 mg/dL (7-18); CO2 28.3 mmol/L (21.0-32.0); CREATININE 0.9 mg/dL (0.55-1.02); Calcium 9.7 mg/dL (8.5-10.1); Calculated LDL 169 mg/dL (<100); Chloride 103 mmol/L (98-107); Cholesterol 282 mg/dL (<200); Estimated GFR 75.97 (mL/min/1.73m2); Glucose 108 mg/dL (74-106); HDL Cholesterol 67 mg/dL (40-60); Potassium 4.5 mmol/L (3.5-5.1); Sodium 140 mmol/L (136-145); Triglyceride 230 mg/dL (<150)
== END 2023-01-23 04:04 | disposition home or self-care (01) ==
LOC: LBO 04:03
PROVIDERS: PCP Nurse Practitioner Family; Visit Provider Nurse Practitioner Family
DX: E78.5 Hyperlipidemia, unspecified (principal); F32.89 Other specified depressive episodes; Z01.818 Encounter for other preprocedural examination; Z01.812 Encounter for preprocedural laboratory examination
CPT/HCPCS: 36415; 80048; 80061; 85025

== ENCOUNTER 2024-01-07 03:03 | Outpatient (CLI) | payer BC, SELFPAY ==
[2024-01-07 08:31] LABS: ALT 48 U/L (14-59); AST 16 U/L (15-37); Alkaline Phosphatase 70 U/L (46-116); Anion Gap 8.2 mmol/L (3-11); BUN 17 mg/dL (7-18); Bilirubin, Total 0.44 mg/dL (0.2-1.0); CO2 28.8 mmol/L (21.0-32.0); CREATININE 0.9 mg/dL (0.55-1.02); Calcium 9.5 mg/dL (8.5-10.1); Calculated LDL 153 mg/dL (<100); Chloride 104 mmol/L (98-107); Cholesterol 290 mg/dL (<200); Glucose 109 mg/dL (74-106); HDL Cholesterol 58 mg/dL (40-60); Potassium 4.3 mmol/L (3.5-5.1); Sodium 141 mmol/L (136-145); Total Protein 7.7 g/dL (6.4-8.2); Triglyceride 398 mg/dL (<150)
[2024-01-07 08:33] LABS: Hemoglobin A1C 5.8 % (<5.7)
[2024-01-08 09:49] LABS: Hepatitis C Ab w Rflx HCV PCR Negative (Negative)
[2024-01-08 10:01] LABS: HIV-1/2 Ag & Ab Screen Negative (Negative)
[2024-01-08 10:18] LABS: HBs Antibody, Quant <3.1 mIU/mL (See Note); Hep B Surface Ab Negative (See Note); Hepatitis B Core Antibody Negative (Negative); Hepatitis B Surface Antigen Negative (Negative)
== END 2024-01-07 03:04 | disposition home or self-care (01) ==
PROVIDERS: PCP Nurse Practitioner Family; Visit Provider Nurse Practitioner Family
DX: Z11.59 Encounter for screening for other viral diseases (principal); Z00.00 Encounter for general adult medical examination without abnormal findings; E78.5 Hyperlipidemia, unspecified; Z11.4 Encounter for screening for human immunodeficiency virus [HIV]
CPT/HCPCS: 36415; 80053; 80061; 86704; 86706; 86803; 87340; 87389; 83036

== ENCOUNTER 2024-06-04 00:55 | Outpatient (CLI) | payer OTHER, SELFPAY ==
[2024-06-09 15:47] LABS: Apolipoprotein B, Serum 122 mg/dL (48-124); Beta VLDL Cholesterol Not Detected mg/dL (<15); Beta VLDL Triglycerides Not Detected mg/dL (<15); Cholesterol, Total, CDC 264 mg/dL; Chylomicron Cholesterol Not Detected; Chylomicron Triglycerides Not Detected; HDL Cholesterol, CDC 62 mg/dL (>=50); LDL Cholesterol 163 mg/dL; LDL Triglycerides 41 mg/dL (<=50); Lp(a) Cholesterol 9 mg/dL (<5); LpX Not detected; Triglycerides, CDC 154 mg/dL; VLDL Cholesterol 30 mg/dL (<30); VLDL Triglycerides 93 mg/dL (<120)
== END 2024-06-04 00:56 | disposition home or self-care (01) ==
PROVIDERS: PCP Nurse Practitioner Family; Visit Provider Nurse Practitioner Family
DX: E78.5 Hyperlipidemia, unspecified (principal)
CPT/HCPCS: 36415; 80061; 82172; 82664

== ENCOUNTER 2024-09-22 09:18 | Outpatient (CLI) | payer OTHER, SELFPAY ==
[2024-09-28 14:52] LABS: Apolipoprotein B, Serum 89 mg/dL (48-124); Beta VLDL Cholesterol Not Detected mg/dL (<15); Beta VLDL Triglycerides Not Detected mg/dL (<15); Cholesterol, Total, CDC 207 mg/dL; Chylomicron Cholesterol Not Detected; Chylomicron Triglycerides Not Detected; HDL Cholesterol, CDC 73 mg/dL (>=50); LDL Cholesterol 107 mg/dL; LDL Triglycerides 32 mg/dL (<=50); Lp(a) Cholesterol 11 mg/dL (<5); LpX Not detected; Triglycerides, CDC 159 mg/dL; VLDL Cholesterol 16 mg/dL (<30); VLDL Triglycerides 104 mg/dL (<120)
== END 2024-09-22 09:19 | disposition home or self-care (01) ==
PROVIDERS: PCP Nurse Practitioner Family; Visit Provider Nurse Practitioner Family
DX: E78.00 Pure hypercholesterolemia, unspecified (principal)
CPT/HCPCS: 36415; 80061; 82172; 82664

== ENCOUNTER 2024-11-03 03:59 | Outpatient (CLI) | payer OTHER, SELFPAY ==
[2024-11-03 09:42] LABS: Hemoglobin A1C 5.7 % (<5.7)
[2024-11-03 09:54] LABS: Anion Gap 8.8 mmol/L (3-11); BUN 16 mg/dL (7-18); CO2 28.2 mmol/L (21.0-32.0); Calcium 9.4 mg/dL (8.5-10.1); Chloride 104 mmol/L (98-107); Estimated GFR 102.07 (mL/min/1.73m2); Glucose 118 mg/dL (74-106); Potassium 4.1 mmol/L (3.5-5.1); Sodium 141 mmol/L (136-145)
== END 2024-11-03 04:00 | disposition home or self-care (01) ==
LOC: LBO 04:00
PROVIDERS: PCP Nurse Practitioner Family; Visit Provider Nurse Practitioner Family
DX: Z00.00 Encounter for general adult medical examination without abnormal findings (principal); F33.9 Major depressive disorder, recurrent, unspecified; R73.03 Prediabetes; E78.00 Pure hypercholesterolemia, unspecified
CPT/HCPCS: 36415; 80048; 83036

== ENCOUNTER 2025-03-01 11:49 | Outpatient (REF) | payer OTHER, SELFPAY | END 2025-03-01 11:50 | disposition home or self-care (01) | LOC: LBN 11:49 | PROVIDERS: PCP Nurse Practitioner Family; Visit Provider Obstetrics & Gynecology | DX: Z12.4 Encounter for screening for malignant neoplasm of cervix (principal) | CPT/HCPCS: 88142; 87624 ==